=== PATIENT | male | born 1955 | race Hispanic/Latino ===

== ENCOUNTER 2016-07-05 11:19 | Emergency (ER) | payer SELFPAY ==
[2016-07-05] MEDS ORDERED: HYDROmorphone HCL 1 MG/ML SYR ONE (12:49)
[2016-07-05] MEDS ORDERED: KETOROLAC TROMETHAMINE 30 MG/ML VIAL ONE ×2 (12:50→12:51)
--- NOTE | 2016-07-05 13:01 | CT REPORT ---
HISTORY: Trauma. COMPARISON: None. TECHNIQUE: This examination was performed using automated exposure control, adjustment of mA or kV according to patient size, and/or use of iterative reconstruction technique. Axial thin section images obtained fr om skull base through head of the clavicles. Sagittal and coronal reformat images obtained. FINDINGS: SPINE: Straightening of cervical spinal loss of normal cervical lordosis. Unchanged low-grade anterior osteo phyte formation C5-C6, C6-C7 and C7-T1 levels. No CT evidence of cervical spine fracture. Prevertebral soft tissues are within normal limits C2-C3: Unchanged mild to moderate left facet arthropathy. Mild left-sided uncovertebral ridging. Mild left neural foraminal narrowing. C3-C4: Uncovertebral ridging on right. Mild bilateral facet arthropathy. Mild to moderate right neura l foraminal narrowing. C4-C5: Mild bilateral facet arthropathy. No significant central canal or bony neural foraminal narrow ing. C5-C6: Shallow central disc osteophyte complex. No significant bony central canal narrowing. Mild rig ht greater than left facet arthropathy. Mild uncovertebral ridging on right. Mild to moderate right n eural foraminal narrowing. C6-C7: Low-grade bilateral uncovertebral ridging. No significant central canal or neural foraminal na rrowing. C7-T1: No significant bony central canal or neural foraminal narrowing. SOFT TISSUES: The visualized soft tissues are unremarkable. Results were communicated with Dr. Kamari Clemens at 07/05/2016 12:58 PM. IMPRESSION: No CT evidence of acute cervical spine abnormality. Mild multilevel degenerative changes. Final Electronic Signature: This report was electronically signed by Guevara Mahoney MD on 07/05/2016 12 :58 PM. elsa /
--- NOTE | 2016-07-05 13:03 | CT REPORT ---
HISTORY: Status post fall. Head pain. COMPARISON: CT head 06/22/2016 TECHNIQUE: Dose reduction technique was utilized. Axial non-contrasted images obtained from skull vertex throug h foramen magnum. Coronal reconstructions. FINDINGS: The ventricles, sulci, and cisterns are normal in size, shape, and position. The brain parenchyma is normal in attenuation. No CT evidence of acute infarction. No evidence of acute intracranial hemor rhage. No intracranial mass. The orbits appear unremarkable. The visualized paranasal sinuses and mastoid air cells appear clear. Calvarium is intact. Results were communicated with Kamari Clemens at 07/05/2016 12:59 PM. IMPRESSION: No acute intracranial abnormality. Final Electronic Signature: This report was electronically signed by Guevara Mahoney MD on 07/05/2016 1: 00 PM. elsa /
--- NOTE | 2016-07-05 13:56 | ER NURSING DOCUMENTATION ---
Nurse's Notes [facility] Name:Rizwan Donahue Age:60 yrs Sex:Male :1955 Arrival Date:07/05/2016 Time:11:19 BedAK Private MD: Diagnosis:Neck Pain Presentation: 07/05 11:25 Acuity: SHELLEY 2 st 11:30 Presenting complaint: Patient states: Increasing pain in L side of head, L shoulder and lp L leg. Transition of care: Home. 11:30 Method Of Arrival: Private Vehicle lp 11:41 AIR CAT ACTIVATION no other Not indicated at this time. Asprin Given n/a. lp Triage Assessment: 11:32 General: Appears uncomfortable, Behavior is appropriate for age. Pain: Complains of lp pain in left leg Pain radiates to left leg Pain currently is 4 out of 10 on a pain scale. EENT: No deficits noted. Neuro: No deficits noted. Cardiovascular: Capillary refill < 3 seconds Heart tones S1 S2 Pulses are all present. Respiratory: Breath sounds are clear bilaterally. GI: other Umbilical hernia Bowel sounds. : No deficits noted. Derm: No deficits noted. Musculoskeletal: No deficits noted. Historical: - Allergies: No known drug Allergies; - Home Meds: 1. None - PMHx: UMBILICAL HERNIA; colon polyps; KIDNEY STONES; - PSHx: colonoscopy; - Tetanus: unknown. - Ebola Screening: : Patient negative for fever greater than or equal to 101.5 degrees Fahrenheit, and additional compatible Ebola Virus Disease symptoms. Patient denies exposure to infectious person. Patient denies travel to an Ebola-affected area in the 21 days before illness onset. . - Immunization history: Unable to Obtain. - Social history: Smoking status: Patient states was never smoker of tobacco. Screenin:38 Infectious Disease Risk None. Abuse screen: Denies threats or abuse. Denies injuries lp from another. Nutritional screening: No deficits noted. Assessment: 11:38 Pain: Complains of pain in left leg and anterior aspect of left upper chest and left lp supraclavicular area and face and left jaw Pain began 2 weeks ago. 11:41 Pain: Quality of pain is described as aching, tingling. lp 11:42 Cardiovascular: Rhythm is sinus rhythm. lp Vital Signs: 11:36 BP 151 / 69; Pulse 70; Resp 16; Temp 97.8(O); Pulse Ox 87% on R/A; Weight 86.18 kg; lp Height 5 ft. 7 in. (170.18 cm); Pain 4/10; 11:36 Pulse Ox 92% on 2 lpm NC; lp 12:00 BP 131 / 83; Pulse 74; Resp 16; Pulse Ox 94% on 2 lpm NC; lp 12:56 BP 153 / 79; Pulse 70; Resp 16; Pulse Ox 94% on 2 lpm NC; lp 13:26 BP 153 / 79; Pulse 69; Resp 16; Pulse Ox 95% on 2 lpm NC; lp 11:36 Body Mass Index 29.76 (86.18 kg, 170.18 cm) lp ED Course: 11:20 Patient arrived in ED. ds 11:[address] 11:30 Jaylin Beach, HARIS is Primary Nurse. lp 11:35 Julio Clemens MD is Attending Physician. tl1 11:[address] Clemens notified. lp 11:38 Valuables Remains with patient Patient has correct armband on for positive lp identification. Placed in gown. Bed in low position. Call light in reach. Side rails up X2. vehicle monitor technician on. Pulse ox on. NIBP on. 11:41 No apparent distress. lp 11:41 Oxygen Oxygen administration via nasal cannula @ 2L/min. lp 12:35 Patient moved to [place]. ms 13:36 [facility]. tl1 13:57 EKG attached lp Administered Medications: 12:56 Drug: Dilaudid 2 mg; Route: IM; Site: left gluteus; lp 13:30 Follow up: Response: Pain is decreased lp 12:57 Drug: Toradol 30 mg; Route: IM; Site: left gluteus; lp 13:30 Follow up: Response: Pain is decreased lp Outcome: 13:37 Discharge ordered by MD. tl1 13:54 Discharged to home ambulatory. lp 13:54 Condition: improved 13:54 Instructed on discharge instructions, follow up and referral plans. medication usage. 13:55 Patient left the ED. lp 07/06 11:31 Discharge F/U Call: Unable to reach: non-working number nf Signatures: Janie Sanchez RN RN st Friel, Nicole, RN RN nf Pavlish, Lena, RN RN lp Srot, Jennifer, Reg Reg ds Bhavana, [facility] ms Julio Clemens MD MD tl1
--- NOTE | 2016-07-07 13:56 | ER PHYSICIAN DOCUMENTATION ---
Physician Documentation [facility] Name:Rizwan Donahue Age:60 yrs Sex:Male :1955 Arrival Date:07/05/2016 Time:11:19 [facility] Private MD: Julio Smyth Disposition: 07/07 06:18 Chart complete. tl1 Disposition: 07/05/16 13:37 Discharged to Home/Self Care. Impression: Neck Pain. - Condition is Good. - Discharge Instructions: BACK AND NECK PAIN, General. - Prescriptions for [place] 7.5- 325 mg Oral Tablet - take 1 tablet by ORAL route every 6 hours As needed; 20 tablet. - Medical Reconciliation form form. - Follow up: [facility]; When: 4- 6 days; Reason: Recheck today's complaints, Continuance of care. - Problem is new. - Symptoms have improved. - Notes: TAKE IBUPROFEN, 400 MG 3-4 TIMES A DAY FOR THE NEXT SEVERAL DAYS TO SEE IF IT HELPS WITH THE PAIN. OK TO TAKE THE NORCO WITH THIS. HPI: 07/05 11:30 This 60 yrs old Male presents to ER via Private Vehicle with complaints of tl1 Left head , neck, arm chest, and leg pain. 11:30 He had a neck and head injury 2 weeks ago, when a heavy pot fell on his head at work. tl1 was seen here, and was diagnosed with a left cervical radiculopathy after unremarkable CT of the neck and head. Understanding what has happened since then is essentially impossible. Using an property and supply officer, I asked him at least 8 different ways over about 20-25 minutes what had happened since then, and all he was able to tell me was that he had pain on the entire left side of his body, including the head neck, arm chest , flank and leg.. Historical: - Allergies: No known drug Allergies; - Home Meds: 1. None - PMHx: UMBILICAL HERNIA; colon polyps; KIDNEY STONES; - PSHx: colonoscopy; - Tetanus: unknown. - Ebola Screening: : Patient negative for fever greater than or equal to 101.5 degrees Fahrenheit, and additional compatible Ebola Virus Disease symptoms. Patient denies exposure to infectious person. Patient denies travel to an Ebola-affected area in the 21 days before illness onset. . - Immunization history: Unable to Obtain. - Social history: Smoking status: Patient states was never smoker of tobacco. ROS: 11:30 Neck: Positive for pain with movement, pain at rest. tl1 11:30 All other systems are negative. Exam: 11:30 Neuro: Awake and alert, GCS 15, oriented to person, place, time, and situation. tl1 Cranial nerves II-XII grossly intact. Motor strength 5/5 in all extremities. Sensory grossly intact. Cerebellar exam normal. Normal gait. 11:30 Constitutional: The patient appears alert, awake, well developed, well hydrated, well groomed, well nourished, uncomfortable. 11:30 Head/face: Exam is negative for acute changes. 11:30 Eyes: Pupils: equal, round, and reactive to light and accomodation, Extraocular movements: intact throughout. 11:30 ENT: Exam is negative for acute changes. 11:30 Neck: External neck: is normal, C-spine: vertebral tenderness, is not appreciated, ROM/movement: limited range of motion. 11:30 Chest/axilla: Exam negative for tenderness. 11:30 Cardiovascular: Rate: normal, Rhythm: regular, Heart sounds: normal. 11:30 Respiratory: Respirations: normal, Breath sounds: are normal. 11:30 Abdomen/GI: Palpation: abdomen is soft and non-tender. 11:30 Back: Exam negative for 11:30 Musculoskeletal/extremity: Exam is negative for acute changes. Vital Signs: 11:36 BP 151 / 69; Pulse 70; Resp 16; Temp 97.8(O); Pulse Ox 87% on R/A; Weight 86.18 kg; lp Height 5 ft. 7 in. (170.18 cm); Pain 4/10; 11:36 Pulse Ox 92% on 2 lpm NC; lp 12:00 BP 131 / 83; Pulse 74; Resp 16; Pulse Ox 94% on 2 lpm NC; lp 12:56 BP 153 / 79; Pulse 70; Resp 16; Pulse Ox 94% on 2 lpm NC; lp 13:26 BP 153 / 79; Pulse 69; Resp 16; Pulse Ox 95% on 2 lpm NC; lp 11:36 Body Mass Index 29.76 (86.18 kg, 170.18 cm) lp MDM: 11:25 Patient medically screened. tl1 13:30 Differential diagnosis: Cervical Disc Herniation Cervical Discogenic Pain Cervical tl1 Raiculopathy cervical strain, Complex regional pain syndrome. Data reviewed: vital signs, nurses notes, old medical records, EKG, radiologic studies, and as a result, I will discharge patient. Counseling: I had a detailed discussion with the patient and/or guardian regarding: the historical points, exam findings, and any diagnostic results supporting the discharge/admit diagnosis, radiology results, the need for outpatient follow up, to return to the emergency department if symptoms worsen or persist or if there are any questions or concerns that arise at home, Without a good history , in the ED it is very difficult to know what is going on. I don't think he has a worrisome emergency medical condition at this time, but appears to be in significant pain. He may benefit from an evaluation by neurology or PM&R. An EMG could be helpful. I recommended prompt f/u with Charlene in the hopes that those referrals could be made promptly. Medication response: The patient's symptoms have improved, Toradol markedly relieved the patient's pain, Dilaudid. 13:57 EKG attached lp 07/05 11:44 Order name: EKG - 12 Lead; Complete Time: 11:45 lp Dispensed Medications: 12:56 Drug: Dilaudid 2 mg; Route: IM; Site: left gluteus; lp 13:30 Follow up: Response: Pain is decreased lp 12:57 Drug: Toradol 30 mg; Route: IM; Site: left gluteus; lp 13:30 Follow up: Response: Pain is decreased lp Signatures: Jaylin Beach RN RN lp Leigh, Tom, MD MD tl1
== END 2016-07-05 13:55 | disposition home or self-care (01) ==
LOC: ER 11:19 → MERGE 11:19 → ER 13:55
DX: M54.2 Cervicalgia (principal); M79.602 Pain in left arm; M79.605 Pain in left leg; R51 Headache; S00.03XD Contusion of scalp, subsequent encounter; S13.4XXD Sprain of ligaments of cervical spine, subsequent encounter
CPT/HCPCS: 70450; 72125; 96372; 99285; J1170; J1885

== ENCOUNTER 2016-07-16 11:17 | Emergency (ER) | payer SELFPAY ==
[2016-07-16] MEDS ORDERED: KETOROLAC TROMETHAMINE 60 MG/2 ML VIAL ONE (12:00)
--- NOTE | 2016-07-16 12:41 | ER PHYSICIAN DOCUMENTATION ---
Physician Documentation [facility] ([place], [place]) Name:Rizwan Donahue Age:60 yrs Sex:Male :1955 Arrival Date:07/16/2016 Time:11:17 Bed6 Private MD: Wild Keller Disposition: 07/16/16 12:30 Discharged to Home/Self Care. Impression: Post Concussion Syndrome. - Condition is Good. - Discharge Instructions: CONCUSSION, No Wake Up. - Work release form, Medical Reconciliation form form. - Follow up: [facility]; When: 10 - 14 days; Reason: Recheck today's complaints, Continuance of care. - Problem is an ongoing problem. - Symptoms are unchanged. HPI: 07/16 12:27 This 60 yrs old Male presents to ER via Private Vehicle with complaints of sc concussion. 12:27 Patient presents to ED for recheck of: 06-22-17 concussion, still fatiguing quickly, sc intermittent headaches. Previous treatment: Previous recheck: the patient's last recheck was 10 day(s) ago. Historical: - Allergies: No known drug Allergies; - Home Meds: 1. None - PMHx: HERNIA; - PSHx: None; - Ebola Screening: : Patient denies exposure to infectious person. Patient denies travel to an Ebola-affected area in the 21 days before illness onset. . - Social history: Smoking status: Patient states was never smoker of tobacco. ROS: 12:28 Eyes: Negative for injury, pain, redness, and discharge. sc ENT: Negative for injury, pain, and discharge. Neck: Negative for injury, pain, and swelling. Cardiovascular: Negative for chest pain, palpitations, and edema. Respiratory: Negative for shortness of breath, cough, wheezing, and pleuritic chest pain. Abdomen/GI: Negative for abdominal pain, nausea, vomiting, diarrhea, and constipation. Back: Negative for injury and pain. MS/Extremity: Negative for injury and deformity. 12:28 Skin: Negative for injury, rash, and discoloration. sc 12:28 Constitutional: Positive for fatigue, gets very tired after a few hours work. 12:28 Neuro: Positive for headache. Exam: Constitutional: This is a well developed, well nourished patient who is awake, alert, and in no acute distress. Head/Face: Normocephalic, atraumatic. Eyes: Pupils equal round and reactive to light, extra-ocular motions intact. Lids and lashes normal. Conjunctiva and sclera are non-icteric and not injected. Cornea within normal limits. Periorbital areas with no swelling, redness, or edema. ENT: Nares patent. No nasal discharge, no septal abnormalities noted. Tympanic membranes are normal and external auditory canals are clear. Oropharynx with no redness, swelling, or masses, exudates, or evidence of obstruction, uvula midline. Mucous membranes moist. Neck: Trachea midline, no thyromegaly or masses palpated, and no cervical lymphadenopathy. Supple, full range of motion without nuchal rigidity, or vertebral point tenderness. No meningismus. Chest/axilla: Normal chest wall appearance and motion. Nontender with no deformity. No lesions are appreciated. Cardiovascular: Regular rate and rhythm with a normal S1 and S2. No gallops, murmurs, or rubs. Normal PMI, no JVD. No pulse deficits. Respiratory: Lungs have equal breath sounds bilaterally, clear to auscultation and percussion. No rales, rhonchi or wheezes noted. No increased work of breathing, no retractions or nasal flaring. Abdomen/GI: Soft, non-tender, with normal bowel sounds. No distension or tympany. No guarding or rebound. No evidence of tenderness throughout. Back: No spinal tenderness. No costovertebral tenderness. Full range of motion. 12:29 Skin: Warm, dry with normal turgor. Normal color with no rashes, no lesions, and no sc evidence of cellulitis. Vital Signs: 11:33 BP 154 / 80; Pulse 76; Resp 16; Temp 98.2; Pulse Ox 91% on R/A; Pain 10/10; st MDM: 11:22 Patient medically screened. sc 12:29 Differential diagnosis: concussion with complications of narcotics causing nausea, sc decreased appetite, early fatigue, poor sleep. Data reviewed: vital signs, nurses notes, old medical records, and as a result, I will discharge patient. Dispensed Medications: 11:51 Drug: Toradol 60 mg; Route: IM; Site: right gluteus; st 12:40 Follow up: Response: Pain is decreased st Signatures: Janie Sanchez, RN RN Wild Ruby MD MD sd
--- NOTE | 2016-07-16 12:41 | ER NURSING DOCUMENTATION ---
Nurse's Notes [facility] Name:Rizwan Donahue Age:60 yrs Sex:Male :1955 Arrival Date:07/16/2016 Time:11:17 Bed6 Private MD: Diagnosis:Post Concussion Syndrome Presentation: 07/16 11:28 Acuity: SHELLEY 4 st 11:30 Presenting complaint: Patient states: pt had a large pot fall on his head almost a st month ago. pt is here because he is still having a pounding headache that shoots throughout his body and some blurred vision. Transition of care: Home. 11:30 Method Of Arrival: Private Vehicle st Triage Assessment: 11:32 General: Appears uncomfortable, Behavior is cooperative. Pain: Complains of pain in st headache Pain currently is 10 out of 10 on a pain scale. Quality of pain is described as throbbing. Neuro: Level of Consciousness is awake, alert, Oriented to person, place, time, event, Moves all extremities. Cardiovascular: No deficits noted. Respiratory: No deficits noted. GI: No deficits noted. Musculoskeletal: Range of motion intact in all extremities. Historical: - Allergies: No known drug Allergies; - Home Meds: 1. None - PMHx: HERNIA; - PSHx: None; - Ebola Screening: : Patient denies exposure to infectious person. Patient denies travel to an Ebola-affected area in the 21 days before illness onset. . - Social history: Smoking status: Patient states was never smoker of tobacco. Screenin:33 Infectious Disease Risk None. Abuse screen: Denies threats or abuse. Denies injuries st from another. Nutritional screening: No deficits noted. Vital Signs: 11:33 BP 154 / 80; Pulse 76; Resp 16; Temp 98.2; Pulse Ox 91% on R/A; Pain 10/10; st ED Course: 11:19 Patient arrived in ED. arc 11:22 Wild Orellana MD is Attending Physician. sc 11:28 Janie Sanchez, RN is Primary Nurse. st 11:[address] 11:34 Valuables Remains with patient Patient has correct armband on for positive st identification. Bed in low position. 12:30 [facility] is Referral Physician. sc Administered Medications: 11:51 Drug: Toradol 60 mg; Route: IM; Site: right gluteus; st 12:40 Follow up: Response: Pain is decreased st Outcome: 12:30 Discharge ordered by . kelly 12:40 Discharged to home ambulatory. st 12:40 Condition: stable 12:40 Discharge instructions given to patient, Instructed on discharge instructions, follow up and referral plans. 12:41 [address] the ED[address] st Signatures: Janie Sanchez RN RN st Chew, Scott, MD MD sc Chew, Amelia, Reg Reg arc
== END 2016-07-16 12:41 | disposition home or self-care (01) ==
LOC: ER 11:17
DX: F07.81 Postconcussional syndrome (principal); R53.83 Other fatigue; R51 Headache; S00.03XD Contusion of scalp, subsequent encounter; S06.0X0D Concussion without loss of consciousness, subsequent encounter
CPT/HCPCS: 96372; 99283; J1885